=== PATIENT | male | born 1990 | race Caucasian/White ===

== ENCOUNTER 2021-06-22 19:00 | Emergency (ER) | payer OTHER ==
[~2021-06-22] VITALS: Ht 170.2 cm; Wt 73.0 kg
[2021-06-22 19:06] VITALS: BP 170/100
[2021-06-22] MEDS ORDERED: FAMOTIDINE 20MG TABLET PO STA (21:10)
[2021-06-22] MEDS ORDERED: PREDNISONE 20MG TABLET PO ONE (21:15)
[2021-06-22] MEDS ORDERED: DIPH25CA83 MT (21:45)
[2021-06-22] MEDS ORDERED: FAMO-135 MT (21:45)
[2021-06-22] MEDS ORDERED: P20 MT (21:45)
== END 2021-06-22 22:20 | disposition home or self-care (01) ==
LOC: ER 19:00
DX: T78.40XA Allergy, unspecified, initial encounter (principal); X58.XXXA Exposure to other specified factors, initial encounter
CPT/HCPCS: 93005; 99283; J7512